=== PATIENT | female | born 1990 | race American Indian/Alaskan Native ===

== ENCOUNTER 2016-12-20 18:48 | Emergency (ER) | payer MEDICAID, OTHER ==
[2016-12-20 21:31] LABS: Eosinophils % (Auto) 1.6 % (0.0-4.3); Hematocrit 39.7 % (30.3-42.9); Hemoglobin 12.8 gm/dl (10.1-14.3); Mean Corpuscular HGB Conc 32 % (30-34); Mean Corpuscular Hemoglobin 26 pg (28-32); Mean Corpuscular Volume 82 fl (79-97); Platelet Count 228 K/mm3 (140-440); Red Blood Count 4.87 M/mm3 (3.65-5.03); Red Cell Distribution Width 14.1 % (13.2-15.2); White Blood Count 6.3 K/mm3 (4.5-11.0)
[2016-12-20 21:41] LABS: INR 0.98 (0.87-1.13)
[2016-12-20 21:42] LABS: Partial Thromboplastin Time 27.5 Sec. (24.2-36.6)
[2016-12-20 21:52] LABS: Alanine Aminotransferase 38 units/L (7-56); Albumin 4.3 g/dL (3.9-5); Alkaline Phosphatase 75 units/L (35-129); Anion Gap 18 mmol/L; BUN/Creatinine Ratio 11.42; Blood Urea Nitrogen 8 mg/dL (7-17); Calcium 9.1 mg/dL (8.4-10.2); Carbon Dioxide 26 mmol/L (22-30); Chloride 101.5 mmol/L (98-107); Glucose 93 mg/dL (65-100); Lipase 48 units/L (13-60); Potassium 3.8 mmol/L (3.6-5.0); Sodium 142 mmol/L (137-145); Total Protein 8.6 g/dL (6.3-8.2)
--- NOTE | 2016-12-21 07:30 | Emergency Department Report ---
HPI - General Chief Complaint: Nausea/Vomiting/Diarrhea Time Seen by Provider: 12/21/16 07:13 - HPI HPI: This is a 26 year-old female who was dropped off by a friend to be seen with a complaint of a 4 to five-day history of upper abdominal pain and pressure. Over the weekend she called EMS and they came to evaluate her and she was told that it was a stomach virus and it would go away, however she has been unable to get any relief. She has not taken anything for her symptoms prior to presentation. She complains of some mild constipation. She feels as if her abdomen is slightly distended "as if I am but I know that I am not" as the patient has an IUD in her arm in place. No recent travel or sick contacts at home. She has a primary care physician but has not seen them regarding her symptoms. ED Past Medical Hx - Past Medical History Previous Medical History?: Yes Hx Hypertension: Yes (gestational) Hx Congestive Heart Failure: No Hx Diabetes: No Hx Deep Vein Thrombosis: No Hx Renal Disease: No Hx Sickle Cell Disease: No Hx Seizures: No Hx Asthma: No Hx COPD: No Hx HIV: No - Surgical History Past Surgical History?: Yes Additional Surgical History: Vaginal deliveries w/o complications - Social History Smoking Status: Never Smoker - Medications Home Medications: Home Medications Medication Instructions Recorded Confirmed Last Taken Type Vit-Fe Fumar-FA [ 1 tab PO QDAY 02/10/16 02/10/16 02/07/16 History Vitamin] valACYclovir [Valtrex] 500 mg PO BID 02/10/16 02/10/16 02/09/16 History Docusate Sodium [Colace] 100 mg PO BID PRN #60 capsule 02/12/16 Unknown Rx Ferrous Sulfate [Feosol 325 MG tab] 325 mg PO BID #60 tablet 02/12/16 Unknown Rx Ibuprofen [Motrin 800 MG tab] 800 mg PO Q8HR PRN #30 tablet 02/12/16 Unknown Rx oxyCODONE /ACETAMINOPHEN [Percocet 1 tab PO Q4HR #30 tab 02/12/16 Unknown Rx 5/325] HYDROcodone/APAP 5-325 [[place] 1 each PO Q6HR PRN #10 tablet 12/21/16 Unknown Rx 5/325] ED Review of Systems ROS: Stated complaint: stomach pain Other details as noted in HPI Comment: All other systems reviewed and negative Constitutional: denies: chills, fever Eyes: denies: eye pain, eye discharge, vision change ENT: denies: ear pain, throat pain Respiratory: denies: cough, shortness of breath, wheezing Cardiovascular: denies: chest pain, palpitations Gastrointestinal: abdominal pain, constipation. denies: vomiting Genitourinary: denies: urgency, dysuria, discharge Musculoskeletal: denies: back pain, joint swelling, arthralgia Skin: denies: rash, lesions Neurological: denies: headache, weakness, paresthesias Physical Exam - Physical Exam Vital Signs: Vital Signs 12/20/16 12/21/16 12/21/16 20:15 04:20 07:03 Temperature 98.7 F 98.9 F 98.3 F Pulse Rate 96 H 86 77 Respiratory 18 18 16 Rate Blood Pressure 134/87 121/87 134/91 O2 Sat by Pulse 100 98 100 Oximetry Physical Exam: GENERAL: The patient is well-developed well-nourished. HENT: Normocephalic. Atraumatic. Patient has moist mucous membranes. EYES: Extraocular motions are intact. Pupils equal reactive to light bilaterally. NECK: Supple. Trachea is midline. CHEST/LUNGS: Clear to auscultation. There is no respiratory distress noted. HEART/CARDIOVASCULAR: Regular. There is no tachycardia. There is no gallop rub or murmur. ABDOMEN: Abdomen is soft. There is tenderness palpation to the upper quadrants of the abdomen. No guarding rebound tenderness. Patient has normal bowel sounds. There is no abdominal distention. SKIN: Skin is warm and dry. NEURO: The patient is awake, alert, and oriented. The patient is cooperative. The patient has no focal neurologic deficits. The patient has normal speech. MUSCULOSKELETAL: There is no tenderness or deformity. There is no limitation range of motion. There is no evidence of acute injury. ED Course Vital Signs 12/20/16 12/21/16 12/21/16 20:15 04:20 07:03 Temperature 98.7 F 98.9 F 98.3 F Pulse Rate 96 H 86 77 Respiratory 18 18 16 Rate Blood Pressure 134/87 121/87 134/91 O2 Sat by Pulse 100 98 100 Oximetry - Consultations Consultation #1: After getting the ultrasound back showing questionable acute cholecystitis, Dr. Denson, general surgery was contacted. He recommended a HIDA scan. The results of this showed concern for acute cholecystitis. He was once again contacted and recommended the patient be discharged to follow up with his office immediately, today, and she will most likely be set up outpatient for a cholecystectomy tomorrow. 12/21/16 14:48 ED Medical Decision Making - Lab Data Result diagrams: 12/20/16 20:57 12/20/16 20:57 - Radiology Data Radiology results: report reviewed, image reviewed interpreted by me: Abdominal x-ray shows nonspecific nonobstructive bowel gas. RIGHT UPPER QUADRANT ULTRASOUND: HISTORY: Upper abdominal pain. Technique: Transabdominal ultrasound imaging with color Doppler interrogation. FINDINGS: There are numerous shadowing gallstones within the gallbladder measuring up to 1 cm. The gallbladder is borderline dilated measuring 13.7 cm in length and 4.5 cm in diameter. Gallbladder wall measures 4 mm. No pericholecystic fluid. The CBD measures 3.4 mm. Images of the liver parenchyma, pancreas, right kidney and aorta are within normal limits. No perihepatic ascites. IMPRESSION: Cholelithiasis. Borderline dilated gallbladder and gallbladder wall thickening. These findings are equivocal for acute cholecystitis. Please correlate with the patient's clinical presentation and laboratory values. HEPATOBILIARY SCAN: History: Right upper quadrant pain, nausea and vomiting Findings: The right upper quadrant ultrasound performed the same day was reviewed. Following the injection of the radionuclide, serial scanning was obtained over the right upper quadrant. There is nonvisualization of the gallbladder out to 2 hours on HIDA scan. There is normal appearance of the radiotracer in the central biliary ducts, common bile duct and bowel loops. IMPRESSION: Nonvisualization of the gallbladder on HIDA scan concerning for acute cholecystitis. - Medical Decision Making 26-year-old female presents with upper abdominal pain and some occasional nausea and vomiting. Labs are mostly unremarkable. Ultrasound shows cholelithiasis but there is some borderline dilation of the gallbladder and wall thickening that could be concerning for acute cholecystitis. After speaking with the general surgeon, he recommended a HIDA scan. HIDA scan came back showing concern for acute cholecystitis. Gen. surgery and recommended patient be discharged directly to his office where he will evaluate her and get her set up for a cholecystectomy tomorrow outpatient. Patient has been stable throughout her ED course. Vital signs stable could be afebrile. She understands and agrees to plan. - Differential Diagnosis cholelithiasis, cholecystitis, pancreatitis, gastritis Critical Care Time: No Critical care attestation.: If time is entered above; I have spent that time in minutes in the direct care of this critically ill patient, excluding procedure time. ED Disposition Clinical Impression: Acute cholecystitis Disposition: DC/TX-70 ANOTHER TYPE HLTHCARE Is pt being admited?: No Condition: Stable Instructions: Cholecystitis (ED) Additional Instructions: Please go immediately to the office of Dr. Denson. You have been prescribed a medication that is sedating and therefore should not be taken prior to driving, working, and responsible for children and in no way should be mixed with alcohol of any quantity. Prescriptions: HYDROcodone/APAP 5-325 [[place] 5/325] 1 each PO Q6HR PRN #10 tablet PRN Reason: Pain Referrals: KENNETH DENSON MD [Staff Physician] - [place] Forms: Work/School Release Form(ED) Time of Disposition: 12:24
--- NOTE | 2016-12-21 08:18 | Ultrasound Report ---
RIGHT UPPER QUADRANT ULTRASOUND: HISTORY: Upper abdominal pain. Technique: Transabdominal ultrasound imaging with color Doppler interrogation. FINDINGS: There are numerous shadowing gallstones within the gallbladder measuring up to 1 cm. The gallbladder is borderline dilated measuring 13.7 cm in length and 4.5 cm in diameter. Gallbladder wall measures 4 mm. No pericholecystic fluid. The CBD measures 3.4 mm. Images of the liver parenchyma, pancreas, right kidney and aorta are within normal limits. No perihepatic ascites. IMPRESSION: Cholelithiasis. Borderline dilated gallbladder and gallbladder wall thickening. These findings are equivocal for acute cholecystitis. Please correlate with the patient's clinical presentation and laboratory values.
--- NOTE | 2016-12-21 10:40 | XRay Report ---
ABDOMEN, 2 views: History: Abdominal pain. The bowel gas pattern is within normal limits. No evidence for obstruction, fluid levels or free air. There is moderate stool in the colon. There is a curvilinear calcification in the left upper quadrant in the expected location of the spleen. These calcifications measure up to 8 cm in diameter. The etiology of this is unclear. Consider further evaluation with CT. IMPRESSION: Mild fecal retention. No acute process is appreciated. Left upper quadrant ill-defined calcifications. Please correlate with the images. The etiology of this is unclear. CT with or without contrast could further evaluate this area if needed.
[2016-12-21 11:20] VITALS: BP 109/61
--- NOTE | 2016-12-21 11:54 | Nuclear Medicine Report ---
HEPATOBILIARY SCAN: History: Right upper quadrant pain, nausea and vomiting Findings: The right upper quadrant ultrasound performed the same day was reviewed. Following the injection of the radionuclide, serial scanning was obtained over the right upper quadrant. There is nonvisualization of the gallbladder out to 2 hours on HIDA scan. There is normal appearance of the radiotracer in the central biliary ducts, common bile duct and bowel loops. IMPRESSION: Nonvisualization of the gallbladder on HIDA scan concerning for acute cholecystitis.
== END 2016-12-21 12:56 | disposition other institution (70) ==
LOC: ED 18:48
DX: K81.0 Acute cholecystitis (principal)
CPT/HCPCS: 36415; 74020; 76705; 78226; 80053; 83690; 84703; 85025; 85610; 85730; 86850; 86900; 86901; 93005; 93010; 99285; A9537

== ENCOUNTER 2016-12-23 11:23 | Day surgery (SDC) | payer SELFPAY ==
--- NOTE | 2016-12-23 12:04 | Anesthesia Consultation ---
Anesthesia Consult and Med Hx Date of service: 12/23/16 - Airway Anesthetic Teeth Evaluation: Good ROM Head & Neck: Adequate Mental/Hyoid Distance: Adequate Mallampati Class: Class II Intubation Access Assessment: Probably Good - Pulmonary Exam CTA: Yes - Cardiac Exam Cardiac Exam: RRR - Pre-Operative Health Status ASA Pre-Surgery Classification: ASA2 Proposed Anesthetic Plan: General - Pulmonary Hx Asthma: No COPD: No Hx Pneumonia: No - Cardiovascular System Hx Hypertension: Yes (gestational) - Central Nervous System Hx Seizures: No Hx Psychiatric Problems: No - Endocrine Hx Renal Disease: No Hx End Stage Renal Disease: No Hx Hypothyroidism: No Hx Hyperthyroidism: No - Hematic Hx Anemia: No Hx Sickle Cell Disease: No - Other Systems Hx Alcohol Use: No Hx Obesity: Yes
[2016-12-23] MEDS ORDERED: DILAUDID IV PRN (12:05)
--- NOTE | 2016-12-23 12:05 | Anesthesia Day of Surgery ---
Anesthesia Day of Surgery - Day of Surgery Patient Examined: Yes Patient H&P Reviewed: Yes Patient is NPO: Yes
[2016-12-23] MEDS ORDERED: SUBLIMAZE ONE (12:19)
[2016-12-23] MEDS ORDERED: DIPRIVAN 10 MG/ML IV ONE ×2 (12:20→13:41)
[2016-12-23] MEDS ORDERED: ANCEF/STERILE WATER 2 GM/20 ML IV NR (12:20)
[2016-12-23] MEDS ORDERED: PERCOCET 5/325 PO PRN (13:00)
[2016-12-23] MEDS ORDERED: ZOFRAN IV PRN (13:00)
[2016-12-23] MEDS ORDERED: PEPCID IV NR (13:00)
[2016-12-23] MEDS ORDERED: LACTATED RINGERS 1,000 ML IV SCH (13:00)
[2016-12-23] MEDS ORDERED: VERSED IV NR (13:00)
[2016-12-23] MEDS ORDERED: MARCAINE 0.5% 30 ML INFILTRATI ONE (13:13)
[2016-12-23] MEDS ORDERED: XYLOCAINE MPF 2% ONE (13:51)
[2016-12-23] MEDS ORDERED: BREVIBLOC IV ONE (13:51)
[2016-12-23] MEDS ORDERED: ZEMURON IV ONE (13:51)
[2016-12-23] MEDS ORDERED: NACL 0.9% IR ONE ×2 (14:10→14:11)
[2016-12-23] MEDS ORDERED: MARCAINE 0.5% INFILTRATI ONE (14:11)
[2016-12-23] MEDS ORDERED: ROBINUL ONE (14:12)
[2016-12-23] MEDS ORDERED: NEOSTIGMINE ONE (14:12)
[2016-12-23] MEDS ORDERED: TORADOL ONE (14:48)
[2016-12-23] MEDS ORDERED: DILAUDID ONE (15:04)
--- NOTE | 2016-12-23 15:11 | Discharge Summary ---
Short Stay Discharge Plan Activity: advance as tolerated Diet: low fat, low cholesterol Wound: per your surgeon's advice Follow up with: PRIMARY CARE, [Primary Care Provider] - 7 Days
[2016-12-23 17:36] VITALS: BP 143/82
--- NOTE | 2016-12-23 23:34 | Operative Report ---
PREOPERATIVE DIAGNOSIS: Acute cholecystitis. POSTOPERATIVE DIAGNOSIS: Acute cholecystitis. SURGERY: Laparoscopic cholecystectomy. ANESTHESIA: General. BLOOD LOSS: Minimal. FINDINGS: The patient had a very large gallbladder that was filled with lots of stones. The cystic duct is about 2 mm. The cystic artery is about 1 mm. The gallbladder was very edematous. BLOOD LOSS: Minimal. FINDINGS: As above. DESCRIPTION OF PROCEDURE: With the patient in supine position, after cleansing and draped in the usual fashion, we had a Veress needle into the right upper quadrant with insufflating CO2 up to a pressure of 15 for which #5 trocar was inserted. With the use of camera, I was able to introduce three more trocars, #5 in the subumbilical area, another #5 in the mid right upper abdomen and #10 in the mid upper epigastrium. I got hold of gallbladder from its fundus. I had to decompress it. I got about 25 mL of hydrops fluid from it. Then a grasper was then applied at the infundibular area at which point I was able to isolate and see both cystic duct and cystic artery. These were endoclipped x 4, transected, and the gallbladder was removed in toto using electrocautery all the way, then it was excised through the wound via an EndoCatch through the usual fashion. With good hemostasis, we were well satisfied, then all the trocars were removed one by one, ascertained no bleeding from the insertion sites. At that point, the fascia was then closed with a [id number] stitch of #0 x 2 and the skin with 4-0 Vicryl and bandage. The patient was then transferred to the recovery room in good condition. She is supposed to ____ with her antibiotic namely Keflex and hydrocodone to see me in my office in about 10 days. JOB# [id number] ANTONIA/MADINA
--- NOTE | 2016-12-24 00:42 | Discharge Summary ---
FINAL DIAGNOSIS: Acute cholecystitis with hydrops. HOSPITAL COURSE: The patient was seen in the ER 2 days ago because of severe pain in the right upper quadrant, severe nausea, but no vomiting. Apparently, had a workup that included CT scan and a HIDA scan that showed complete obstruction of the cystic duct with hydrops apparently with thickened wall of the gallbladder. She was then today came for definitive surgical intervention, where she underwent a laparoscopic cholecystectomy. The examination was mainly for right upper quadrant tenderness ____. She was found also to have an umbilical hernia with a defect about 2 x 2 cm. Postop, she was transferred to the recovery room and she was to go home and seen by me in my office in about 10 days. She is to continue with her antibiotics, Keflex and hydrocodone. DIET: Low fat. ACTIVITIES: No driving. JOB# [id number] ANTONIA/MADINA
== END 2016-12-23 17:32 | disposition home or self-care (01) ==
LOC: OR 11:23
PROVIDERS: ATTEND Surgery
DX: K80.00 Calculus of gallbladder with acute cholecystitis without obstruction (principal); K80.10 Calculus of gallbladder with chronic cholecystitis without obstruction; K82.1 Hydrops of gallbladder; K21.9 Gastro-esophageal reflux disease without esophagitis; E66.9 Obesity, unspecified; Z68.39 Body mass index [BMI] 39.0-39.9, adult
CPT/HCPCS: 47562; 88304; A4217; J0690; J1170; J1885; J2250; J2704; J2710; J3010; J7120

== ENCOUNTER 2017-12-07 11:08 | Emergency (ER) | payer OTHER, SELFPAY ==
[2017-12-07 11:17] VITALS: BP 137/86
[2017-12-07] MEDS ORDERED: MOTRIN PO ONE (12:54)
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
--- NOTE | 2017-12-07 14:18 | XRay Report ---
CERVICAL SPINE, 3 views: History: Neck pain. AP and lateral views of the cervical spine were obtained. There is anatomic alignment, and the disc spaces are well maintained. There is no evidence of fracture or subluxation. There is loss of the normal cervical lordotic curve suggestive of muscle spasm. The prevertebral soft tissues are within normal limits. IMPRESSION: Loss of cervical lordosis suggesting muscle spasm vs. variation in patient positioning. Clinical correlation is advised. Otherwise negative cervical spine.
--- NOTE | 2017-12-07 14:18 | XRay Report ---
THORACIC SPINE, 2 VIEWS: HISTORY: back pain. Normal bone mineralization. No evidence for compression deformity, malalignment, or bone lesion. The posterior ribs are intact. The paraspinal soft tissues are within normal limits. IMPRESSION: Thoracic spine within normal limits.
== END 2017-12-07 14:34 | disposition home or self-care (01) ==
LOC: ED 11:08
DX: S39.012A Strain of muscle, fascia and tendon of lower back, initial encounter (principal); S13.4XXA Sprain of ligaments of cervical spine, initial encounter; V49.49XA Driver injured in collision with other motor vehicles in traffic accident, initial encounter; Y93.89 Activity, other specified; Y92.89 Other specified places as the place of occurrence of the external cause; Y99.8 Other external cause status
CPT/HCPCS: 72040; 72072

== ENCOUNTER 2020-12-15 09:09 | Emergency (ER) | payer OTHER, SELFPAY ==
[2020-12-15 09:44] VITALS: BP 117/83
--- NOTE | 2020-12-15 09:51 | Emergency Department Report ---
- General Chief Complaint: Sore Throat Stated Complaint: COVID POSITIVE Time Seen by Provider: 12/15/20 09:46 Source: patient Mode of arrival: Ambulatory Limitations: No Limitations - History of Present Illness Initial Comments: The patient was evaluated in the emergency department for symptoms described in the history of present illness. He/she was evaluated in the context of the global COVID-19 pandemic, which necessitated consideration that the patient might be at risk for infection with the virus that causes COVID-19. Institutional protocols and algorithms that pertain to the evaluation of patients at risk for COVID-19 are in a state of rapid change based on information released by regulatory bodies including the CDC and federal and state organizations. These policies and algorithms were followed during the patient's care in the emergency department. Please note that these policies, procedures and recommendations changed on a rapid basis. 30-year-old morbid obese -[place]ov[place] female presents to the emergency room stating that she tested positive for Covid 19 on Tuesday. Patient states since then she has been having body aches low-grade fever headache sore throat and fatigue. Patient is unvaccinated. She denies any past medical history does not take any current medications on a daily basis. She has been taken [id number] ibuprofen and DayQuil. No nausea no vomiting no diarrhea. - Related Data Home Medications Medication Instructions Recorded Confirmed Last Taken Etonogestrel [Nexplanon] 1 applic SQ ONCE 12/23/16 09/25/19 12/23/16 Previous Rx's Medication Instructions Recorded Last Taken Type Ketorolac [Toradol] 10 mg PO Q6H PRN #15 tablet 09/25/19 Unknown Rx methOCARBAMOL [Robaxin] 750 mg PO Q8H PRN #21 tablet 09/25/19 Unknown Rx Ibuprofen [Motrin 800 MG tab] 800 mg PO Q8HR PRN #30 tablet 12/15/20 Unknown Rx Prednisone [predniSONE 10 mg 10 mg PO .TAPER #1 tab.ds.pk 12/15/20 Unknown Rx (6-Day Pack, 21 Tabs)] Promethazine/Dextromethorphan 5 ml PO TID PRN #118 ml 12/15/20 Unknown Rx [Promethazine-Dm Syrup] Allergies Allergy/AdvReac Type Severity Reaction Status Date / Time No Known Allergies Allergy Verified 12/21/15 12:04 ED Review of Systems ROS: Stated complaint: COVID POSITIVE Other details as noted in HPI Comment: All other systems reviewed and negative ED Past Medical Hx - Past Medical History Hx Hypertension: Yes (gestational) Hx Congestive Heart Failure: No Hx Diabetes: No Hx Deep Vein Thrombosis: No Hx GERD: Yes Hx Renal Disease: No Hx Sickle Cell Disease: No Hx Seizures: No Hx Asthma: No Hx COPD: No Hx HIV: No - Surgical History Hx Cholecystectomy: Yes Additional Surgical History: Vaginal deliveries w/o complications - Social History Smoking Status: Never Smoker - Medications Home Medications: Home Medications Medication Instructions Recorded Confirmed Last Taken Type Etonogestrel [Nexplanon] 1 applic SQ ONCE 12/23/16 09/25/19 12/23/16 History Ketorolac [Toradol] 10 mg PO Q6H PRN #15 tablet 09/25/19 Unknown Rx methOCARBAMOL [Robaxin] 750 mg PO Q8H PRN #21 tablet 09/25/19 Unknown Rx Ibuprofen [Motrin 800 MG tab] 800 mg PO Q8HR PRN #30 tablet 12/15/20 Unknown Rx Prednisone [predniSONE 10 mg 10 mg PO .TAPER #1 tab.ds.pk 12/15/20 Unknown Rx (6-Day Pack, 21 Tabs)] Promethazine/Dextromethorphan 5 ml PO TID PRN #118 ml 12/15/20 Unknown Rx [Promethazine-Dm Syrup] ED Physical Exam - General Limitations: No Limitations General appearance: alert, in no apparent distress - Head Head exam: Present: atraumatic, normocephalic - Eye Eye exam: Present: normal appearance - ENT ENT exam: Present: mucous membranes moist. Absent: TM's normal bilaterally (Cerumen impaction bilateral) - Neck Neck exam: Present: normal inspection - Respiratory Respiratory exam: Present: normal lung sounds bilaterally. Absent: respiratory distress, chest wall tenderness, accessory muscle use - Cardiovascular Cardiovascular Exam: Present: regular rate, normal rhythm. Absent: systolic murmur, diastolic murmur, rubs, gallop - GI/Abdominal GI/Abdominal exam: Present: soft, normal bowel sounds - Extremities Exam Extremities exam: Present: normal inspection - Back Exam Back exam: Present: normal inspection - Neurological Exam Neurological exam: Present: alert, oriented X3, normal gait - Psychiatric Psychiatric exam: Present: normal affect, normal mood - Skin Skin exam: Present: warm, dry, intact, normal color. Absent: rash ED Course Vital Signs 12/15/20 09:43 Temperature 98.6 F Pulse Rate 101 H Respiratory 16 Rate Blood Pressure 117/83 [Right] O2 Sat by Pulse 97 Oximetry ED Medical Decision Making - Medical Decision Making 30-year-old morbid obese -Slov[place] female presents to the emergency room stating that she tested positive for Covid 19 on Tuesday. Patient states since then she has been having body aches low-grade fever headache sore throat and fatigue. Patient is unvaccinated. She denies any past medical history does not take any current medications on a daily basis. She has been taken [id number] nter ibuprofen and DayQuil. No nausea no vomiting no diarrhea. Prescription for prednisone pack, promethazine DM and ibuprofen. Encourage patient to increase her water intake. Continue to quarantine. Get retested once her symptoms have improved and encouraged to get Covid vaccination. Critical care attestation.: If time is entered above; I have spent that time in minutes in the direct care of this critically ill patient, excluding procedure time. ED Disposition Clinical Impression: COVID-19, Cough Disposition: HOME / SELF CARE / HOMELESS Is pt being admited?: No Does the pt Need Aspirin: No Condition: Stable Instructions: COVID-19 Frequently Asked Questions, COVID-19: How to Protect Yourself and Others - CDC, Prevent the Spread of COVID-19 if You Are Sick - [facility] Additional Instructions: Complete prednisone as prescribed take ibuprofen for the body aches and fever take cough medication to help with your cough. You have to test negative to return back to work. Encouraged to get your flu and Covid test. Prescriptions: Ibuprofen [Motrin 800 MG tab] 800 mg PO Q8HR PRN #30 tablet PRN Reason: Pain , Severe (7-10) Prednisone [predniSONE 10 mg (6-Day Pack, 21 Tabs)] 10 mg PO .TAPER #1 tab.ds.pk Promethazine/Dextromethorphan [Promethazine-Dm Syrup] 5 ml PO TID PRN #118 ml PRN Reason: Cough Referrals: [facility] [Provider Group] - 3-5 Days Time of Disposition: 09:50
== END 2020-12-15 10:08 | disposition home or self-care (01) ==
LOC: ED 09:09
DX: U07.1 COVID-19 (principal); K21.9 Gastro-esophageal reflux disease without esophagitis; Z98.890 Other specified postprocedural states; Z79.899 Other long term (current) drug therapy
CPT/HCPCS: 99281

== ENCOUNTER 2021-08-26 09:37 | Inpatient (IN) | payer MEDICAID, OTHER ==
[2021-08-20 12:46] LABS: Hematocrit 39.6 % (30.3-42.9); Hemoglobin 12.8 gm/dl (10.1-14.3); Mean Corpuscular HGB Conc 32 % (30-34); Mean Corpuscular Volume 82 fl (79-97); Platelet Count 170 K/mm3 (140-440); Red Blood Count 4.81 M/mm3 (3.65-5.03); Red Cell Distribution Width 14.7 % (13.2-15.2)
[2021-08-26] MEDS ORDERED: LACTATED RINGERS 2,000 ML ONE (10:07)
--- NOTE | 2021-08-26 10:40 | Anesthesia Day of Surgery ---
Anesthesia Day of Surgery - Day of Surgery Patient Examined: Yes Patient H&P Reviewed: Yes Patient is NPO: Yes
--- NOTE | 2021-08-26 10:40 | Anesthesia Consultation ---
Anesthesia Consult and Med Hx Date of service: 08/26/21 - Airway Anesthetic Teeth Evaluation: Good ROM Head & Neck: Adequate Mental/Hyoid Distance: Adequate Mallampati Class: Class II Intubation Access Assessment: Good - Pulmonary Exam CTA: Yes - Cardiac Exam Cardiac Exam: RRR - Pre-Operative Health Status ASA Pre-Surgery Classification: ASA2 Proposed Anesthetic Plan: Spinal - Pulmonary Hx Asthma: No COPD: No Hx Pneumonia: No - Cardiovascular System Hx Hypertension: Yes (gestational) - Central Nervous System Hx Seizures: No Hx Psychiatric Problems: No - Endocrine Hx Renal Disease: No Hx End Stage Renal Disease: No Hx Hypothyroidism: No Hx Hyperthyroidism: No - Hematic Hx Anemia: No Hx Sickle Cell Disease: No - Other Systems Hx Alcohol Use: No Hx Cancer: No Hx Obesity: Yes
[2021-08-26] MEDS ORDERED: HYDROmorphone 1 MG/1 ML INJ IV PRN (10:41)
[2021-08-26] MEDS ORDERED: BICITRA ORAL LIQD 30ML PO SCH (11:00)
[2021-08-26] MEDS ORDERED: ONDANSETRON 4 MG/2 ML INJ IV PRN (11:00)
[2021-08-26] MEDS ORDERED: PROMETHAZINE 25 MG RECT SUPP PR PRN (11:00)
[2021-08-26] MEDS ORDERED: FAMOTIDINE 20 MG/2 ML INJ IV SCH (11:00)
[2021-08-26] MEDS ORDERED: PROMETHAZINE 25 MG TAB PO PRN (11:00)
[2021-08-26] MEDS ORDERED: NALOXONE 0.4 MG/1 ML INJ IV PRN ×2 (11:00→12:30)
[2021-08-26] MEDS ORDERED: METOCLOPRAMIDE 10 MG/2 ML INJ IV SCH (11:00)
[2021-08-26 11:03] LABS: Hematocrit 37.7 % (30.3-42.9); Hemoglobin 12.5 gm/dl (10.1-14.3); Mean Corpuscular HGB Conc 33 % (30-34); Mean Corpuscular Volume 82 fl (79-97); Platelet Count 177 K/mm3 (140-440); Red Cell Distribution Width 14.5 % (13.2-15.2)
[2021-08-26] MEDS ORDERED: ceFAZolin/Water 2 GM/20 ML 2 GM/20 ML SYRINGE IV ONE (11:17)
[2021-08-26] MEDS ORDERED: BICITRA ORAL LIQD 30ML ONE (11:17)
[2021-08-26] MEDS ORDERED: OXYTOCIN DRIP 60,000 MILLIUNITS/1,000 ML BAG IV ONE (11:17)
--- NOTE | 2021-08-26 11:30 | History and Physical Report ---
History of Present Illness Date of examination: 08/26/21 Date of admission: 08/26/21 09:37 Chief complaint: scheduled delivery History of present illness: 30y/o @ 39+0 weeks presents for a scheduled delivery and bilateral tubal ligation. The patient has had a previous . Patient initiated care in the first trimester. Her course is complicated by obesity, echogenic bowel on ultrasound, and transient hyperthyroidism. Past History Past Medical History: GERD, other (hyperthyroidism) Past Surgical History: section Social history: - Obstetrical History Expected Date of Delivery: 09/02/21 Actual Gestation: 39 Week(s) 0 Day(s) : 5 Para: 3 Hx # Term Pregnancies: 3 Number of Pregnancies: 0 Spontaneous Abortions: 2 Induced : 0 Number of Living Children: 3 Medications and Allergies Allergies Allergy/AdvReac Type Severity Reaction Status Date / Time No Known Allergies Allergy Verified 08/19/21 16:44 Home Medications Medication Instructions Recorded Confirmed Last Taken Type Aspirin [Adult Aspirin] 81 mg PO DAILY 08/19/21 08/19/21 Unknown History Vit-Fe Fumar-FA [ 1 tab PO QDAY 08/19/21 08/19/21 Unknown History Vitamin] Active Meds: Active Medications Citric Acid/Sodium Citrate (Bicitra Oral Liqd 30ml) 30 ml PO PREOP CANDACE Stop: 08/26/21 17:00 Last Admin: 08/26/21 11:26 Dose: 30 ml Famotidine (Famotidine 20 Mg/2 Ml Inj) 20 mg IV PREOP CANDACE Stop: 08/26/21 17:00 Last Admin: 08/26/21 11:25 Dose: 20 mg Hydromorphone HCl (Hydromorphone 1 Mg/1 Ml Inj) 0.5 mg IV Q5M PRN PRN Reason: BREAKTHROUGH PAIN Stop: 08/26/21 17:00 Lactated Ringer's (Lactated Ringers) 1,000 mls @ 2,250 mls/hr IV PREOP CANDACE Stop: 08/27/21 11:57 Oxytocin/Sodium Chloride (Pitocin/Ns 30 Unit/500ml) 30 units in 500 mls @ 0 mls/hr IV TITR CANDACE; Protocol Metoclopramide HCl (Metoclopramide 10 Mg/2 Ml Inj) 10 mg IV PREOP CANDACE Stop: 08/26/21 17:00 Last Admin: 08/26/21 11:23 Dose: 10 mg Naloxone HCl (Naloxone 0.4 Mg/1 Ml Inj) 0.2 mg IV Q2MIN PRN PRN Reason: Res Rate </= 8 or 02 SAT < 92% Ondansetron HCl (Ondansetron 4 Mg/2 Ml Inj) 4 mg IV Q8H PRN PRN Reason: Nausea And Vomiting Promethazine HCl (Promethazine 25 Mg Tab) 25 mg PO Q6H PRN PRN Reason: Nausea And Vomiting Promethazine HCl (Promethazine 25 Mg Rect Supp) 25 mg CO Q6H PRN PRN Reason: Nausea And Vomiting Sodium Chloride (Sodium Chloride 0.9% 10 Ml Flush Syringe) 10 ml IV PRN PRN PRN Reason: flush Review of Systems All systems: negative Genitourinary: no leakage of fluid, no contractions - Vital Signs Vital signs: Vital Signs Temp Pulse Resp BP Pulse Ox 98.1 F 94 H 16 119/75 99 08/20/21 12:30 08/20/21 12:30 08/20/21 12:30 08/20/21 12:30 08/20/21 12:30 Temp Pulse Resp BP Pulse Ox 97.5 F L 83 20 125/85 100 08/26/21 10:02 08/26/21 11:25 08/26/21 10:02 08/26/21 10:02 08/26/21 11:25 - Physical Exam Breasts: Positive: deferred Cardiovascular: Regular rate Lungs: Positive: Clear to auscultation Abdomen: Positive: normal appearance Results Result Diagrams: 08/26/21 10:40 Abnormal lab results 08/26/21 Range/Units 10:40 MCH 27 L (28-32) pg All other labs normal. Assessment and Plan - Patient Problems (1) Previous delivery affecting Current Visit: Yes Status: Acute Plan to address problem: admitted for repeat and tubal ligation (2) Unwanted fertility Current Visit: Yes Status: Acute
[2021-08-26] MEDS ORDERED: diphenhydrAMINE 50 MG/ML VIAL ONE (11:34)
[2021-08-26] MEDS: LACTATED RINGERS 1,000 ML IV SCH ×3 (11:35→13:39)
[2021-08-26] MEDS ORDERED: diphenhydrAMINE 25 MG/10 ML ORAL LIQUID PO NR (11:36)
[2021-08-26] MEDS ORDERED: ceFAZolin/STERILE WATER 2 GM/20 ML SYRINGE IV ONE (11:48)
--- NOTE | 2021-08-26 11:49 | Procedure Note ---
OB Delivery Note - Delivery Date of Delivery: 08/26/21 Surgeon: NAREN WAKEFIELD Estimated blood loss: other (qbl 672ml) - Section Preop diagnosis: repeat Postop diagnosis: same section procedure: section, repeat low transverse, bilateral tubal ligation Disposition: PACU Complications: none - A at 1 minute: 8 at 5 minutes: 9 Infant Gender: Male (Weight 6 pounds 10 ounces)
[2021-08-26] MEDS ORDERED: D5W/LACTATED RINGERS 1,000 ML IV SCH (12:00)
[2021-08-26] MEDS ORDERED: OXYTOCIN DRIP 30 UNITS/500 ML BAG IV SCH ×2 (12:00)
[2021-08-26] MEDS ORDERED: LANOLIN/ZINC/DIMETHICONE (LANSINOH) 7 GM TP PRN (12:30)
[2021-08-26] MEDS ORDERED: WITCH HAZEL/ GLYCERIN PAD TP PRN (12:30)
[2021-08-26] MEDS ORDERED: ACETAMINOPHEN 325 MG TAB PO PRN (12:30)
[2021-08-26] MEDS ORDERED: ONDANSETRON 4 MG/2 ML INJ ONE (13:14)
[2021-08-26] MEDS ORDERED: SODIUM CHLORIDE 0.9% 100 ML ONE (13:14)
[2021-08-26] MEDS ORDERED: dexAMETHasone 20 MG/5 ML VIAL ONE (13:14)
[2021-08-26] MEDS ORDERED: BUPIVACAINE/PF (0.5%) 5 MG/1 ML 30 ML VIAL INFILTRATI ONE (13:14)
--- NOTE | 2021-08-26 13:22 | Progress Note ---
Spinal Anesthesia Block - Spinal Anesthesia Block Start Time: 11:55 Stop Time: 11:58 Performed by:: JOE OWENS Procedure: Spinal anesthesia block is being performed for []. H&P, labs have been reviewed. Patient's questions and concerns have been answered. Informed consent has been performed. Timeout has was performed. Patient in sitting position on side of bed. Sterile prep and drape was performed. 3 mL 1% lidocaine skin wheal at L [3]-L [4]. Needle introducer advanced. 24-gauge spinal needle advanced, [+] CSF [-] blood. [] Spinal dose was given. All needles removed. Patient tolerated procedure well.
--- NOTE | 2021-08-26 13:22 | Progress Note ---
Regional Anesthesia Block - Regional Anesthesia Block Start Time: 13:11 Stop Time: 13:13 Performed By:: JOE OWENS Procedure: Patient consented for TAP block for post surgical pain management. Patient identified, monitors placed, and time out performed. Mid axillary TAP identified bilaterally via ultrasound. Skin prepped bilaterally with [chlorhexidine] and [20g stimuplex] needle advanced to the TAP. 30ml [Marcaine 0.25% with 25mcg Precedex and Decadron 5mg] injected under ultrasound guidance on the [left] side. 30ml [Marcaine 0.25% with 25mcg Precedex and Decadron 5mg] injected under ultrasound guidance on the [right] side. Negative aspiration every 5mL, Patient tolerated the procedure well. No apparent complications seen.
--- NOTE | 2021-08-26 13:23 | Post Anesthesia Evaluation ---
- Post Anesthesia Evaluation Patient Participated: Yes Airway Patent: Yes Stable Respiratory Function: Yes Nausea/Vomiting: No Temp > 96.8F: Yes Pain Manageable: Yes Adequeate Hydration: Yes Anesthesia Complications: No Block Receding Appropriately: Yes
--- NOTE | 2021-08-26 15:56 | Operative Report ---
Operative Report Operative Report: Date of surgery: August 26, 2021 Preoperative diagnosis: at 39+0 weeks; previous delivery; u ndesired fertility Postoperative diagnosis: Same as above Procedure: Repeat low transverse delivery and bilateral tubal ligation via [place] method Surgeon: Silvia Hinojosa M.D. Anesthesia: Regional Estimated blood loss: Qbl: 672ml IV fluids: 1 L Urine output: 50 mL Findings: Liveborn male with Apgars of 8 and 9 weight 6 pounds 10 ounces Indications: 30-year-old at 39+0 weeks who presents for repeat delivery and bilateral tubal ligation. Procedure: The patient was taken to the operating room and given regional anesthesia without complication. She was prepped and draped in a normal sterile fashion. A Pfannenstiel skin incision was made down to layer the fascia which was nicked in the midline extended laterally with the Bovie cautery. The superior aspect of the rectus fascia was grasped with Lazara clamps x2 and the rectus muscles off sharply. This was done in inferior fashion as well. The rectus muscle midline and peritoneum entered bluntly. An Jose Cruz retractor was then inserted. A bladder blade was placed. The vesicouterine peritoneum was then entered sharply with Metzenbaum scissors. A bladder flap was created digitally. A low transverse uterine incision was then made and extended digitally. There was clear fluid upon entry into the uterine cavity. The head was delivered through the incision with fundal pressure. The cord was clamped and cut x2 and infant was passed off to pediatrics. The placenta was then manually extracted. The uterus was then exteriorized and cleared of clots and debris. The uterine incision was then closed in a running locked fashion with 0 Vicryl additional imbricating stitch was applied for 2 layer closure. Attention was then turned to the ampullary portion of tube where the mesosalpinx was transected with the Bovie cautery. A Bruni was placed on the fallopian tube. The distal and proximal area of the fallopian tube were excised and ligated with chromic suture. A 1 cm portion of tube was then excised. This was performed the contralateral side as well. The posterior cul-de-sac was then copiously irrigated. The uterus was replaced back into the abdomen and pelvis were the gutters were then irrigated. The Jose Cruz retractor was then removed. The peritoneum was then reapproximated with 3-0 Vicryl incorporating the rectus muscle. The fascia was then closed with 0 Vicryl in a running fashion. The skin was then reapproximated with 3-0 Monocryl on a Oneil needle subcuticular fashion. Steri-Strips to place across the incision and a Crede procedures performed at the end of the surgery. A pressure dressing was applied to the incision. The surgery productive of a liveborn male with Apgars of 8 and 9 weight 6 pounds 10 ounces. The patient was taken to the recovery room in stable condition. All sponge laps and needle counts correct x2.
[2021-08-26] MEDS: KETOROLAC 30 MG/1 ML INJ IV PRN (17:59)
[2021-08-26] MEDS: MORPHINE 4 MG/1 ML INJ IV PRN (19:43)
[2021-08-26] MEDS ORDERED: MAGNESIUM HYDROXIDE (MOM) ORAL LIQD UDC PO PRN (22:00)
[2021-08-27] MEDS: KETOROLAC 30 MG/1 ML INJ IV PRN ×3 (00:02→16:15)
[2021-08-27 00:03] LABS: Hematocrit 32.2 % (30.3-42.9); Hemoglobin 10.4 gm/dl (10.1-14.3)
[2021-08-27] MEDS: MORPHINE 4 MG/1 ML INJ IV PRN (01:32)
--- NOTE | 2021-08-27 09:27 | Progress Note ---
Assessment and Plan - Patient Problems (1) Status post repeat low transverse section Current Visit: Yes Status: Acute Plan to address problem: Continue routin PP orders Keep dressing clean and dry, remove on POD#2 Anticipate d/c home in 24-48 hrs if stable (2) Status post tubal ligation at time of delivery, current hospitalization Current Visit: Yes Status: Acute (3) Anemia Current Visit: Yes Status: Acute Qualifiers: Anemia type: other cause Other causes of anemia: acute posthemorrhagic Qualified Code(s): D62 - Acute posthemorrhagic anemia Plan to address problem: Asymptomatic Increase iron rich foods into diet (4) Hyperthyroidism Current Visit: Yes Status: Acute Plan to address problem: Resume home meds Subjective - Subjective Date of service: 08/27/21 Principal diagnosis: Repeat C/S; POD#1 Interval history: 30y/o @ 39+0 weeks presents for a scheduled delivery and bilateral tubal ligation. The patient has had a previous . Patient ini [facility] care in the first trimester. Her course is complicated by obesity, echogenic bowel on ultrasound, and transient hyperthyroidism. Delivered viable male via C/S. Patient reports: appetite normal, voiding normally, pain well controlled, flatus, ambulating normally, no bowel movement : doing well, bottle feeding Objective - Vital Signs Latest vital signs: Vital Signs Temp Pulse Resp BP BP Pulse Ox Pulse Ox 08/27/21 07:53 98.4 F 75 20 130/73 98 08/27/21 05:52 18 08/27/21 05:22 18 08/27/21 04:41 98.0 F 86 18 140/83 98 08/27/21 02:02 18 08/27/21 01:32 18 08/27/21 00:48 97.8 F 48 L 08/27/21 00:32 18 08/27/21 00:21 98.7 F 87 20 141/84 96 08/27/21 00:02 18 08/26/21 21:00 97.8 F 123/38 08/26/21 20:30 100 08/26/21 20:13 18 08/26/21 19:43 18 08/26/21 14:40 97.6 F 69 16 124/79 99 99 08/26/21 14:15 62 16 132/81 99 08/26/21 14:00 97.8 F 60 15 132/80 98 08/26/21 13:45 60 15 125/72 98 08/26/21 13:30 62 16 128/79 98 08/26/21 13:25 97.9 F 66 15 121/80 98 08/26/21 13:20 64 17 125/77 98 08/26/21 13:18 97.9 F 61 16 122/77 99 08/26/21 11:40 128 H 99 08/26/21 11:35 111 H 99 08/26/21 11:30 131 H 100 08/26/21 11:25 83 100 08/26/21 11:20 83 98 08/26/21 11:15 84 97 08/26/21 11:14 98 08/26/21 11:10 82 100 08/26/21 11:05 82 100 08/26/21 11:00 79 100 08/26/21 10:55 91 H 100 08/26/21 10:50 91 H 99 08/26/21 10:45 89 99 08/26/21 10:40 79 99 08/26/21 10:35 92 H 99 08/26/21 10:30 90 99 08/26/21 10:25 86 99 08/26/21 10:20 97 H 99 08/26/21 10:11 94 H 99 08/26/21 10:06 89 99 08/26/21 10:02 97.5 F L 88 20 125/85 99 08/26/21 10:01 86 98 08/26/21 09:58 99 H 125/85 08/26/21 09:56 91 H 98 Intake and Output 08/26/21 08/27/21 08/27/21 23:59 07:59 15:59 Intake Total 520 1200 Output Total 650 600 Balance -130 600 Intake: Oral 520 660 Intake, Free Water 540 Output: Urine 650 600 Indwelling Catheter 650 300 Void 300 Other: Total, Intake Amount 520 420 Total, Output Amount 650 300 - Exam Breasts: Present: normal Cardiovascular: Present: Regular rate Lungs: Present: Normal air movement Abdomen: Present: soft, tenderness Uterus: Present: firm, fundal height below umbilicus (U-1) Extremities: Present: edema Deep Tendon Reflex Grade: Normal +2 Incision: Present: dressed (no shadow drainage or bleeding noted) - Labs Labs: Abnormal lab results 08/26/21 Range/Units 10:40 MCH 27 L (28-32) pg
[2021-08-27] MEDS: oxyCODONE /ACETAMINOPHEN 5-325MG TAB PO PRN ×2 (11:07→18:21)
[2021-08-27] MEDS: IBUPROFEN 600 MG TAB PO PRN (23:05)
[2021-08-28] MEDS: oxyCODONE /ACETAMINOPHEN 5-325MG TAB PO PRN ×3 (00:38→21:49)
[2021-08-28] MEDS: IBUPROFEN 600 MG TAB PO PRN (05:18)
--- NOTE | 2021-08-28 07:34 | Progress Note ---
Assessment and Plan A: POD#2 s/p repeat section and tubal ligation Obesity Suboptimal pain control P: Optimize pain regimen Routine postop care Anticipate discharge later today or tomorrow Subjective - Subjective Date of service: 08/28/21 Principal diagnosis: Repeat C/S; POD#2 Interval history: Pt reports suboptimal pain control. Voiding with a burning sensation across her incision. + flatus. No bowel movement yet. Patient reports: appetite normal, voiding normally, flatus, pain poorly controlled, ambulating normally, no bowel movement : doing well Objective - Vital Signs Latest vital signs: Vital Signs Temp Pulse Resp BP Pulse Ox Pulse Ox 08/28/21 06:18 18 08/28/21 05:18 18 08/28/21 01:38 18 08/28/21 00:38 18 08/28/21 00:18 98.2 F 92 H 21 147/92 96 08/28/21 00:05 18 08/27/21 23:05 18 08/27/21 21:30 99 08/27/21 19:21 18 08/27/21 18:21 16 08/27/21 16:45 16 08/27/21 16:15 16 08/27/21 16:03 98.5 F 80 20 120/75 100 08/27/21 11:56 98.5 F 92 H 20 125/78 100 08/27/21 11:07 16 08/27/21 10:25 100 08/27/21 07:53 98.4 F 75 20 130/73 98 Intake and Output 08/27/21 08/28/21 08/28/21 22:59 06:59 14:59 Intake Total 240 720 Balance 240 720 Intake: Oral 240 Intake, Free Water 720 Other: Total, Intake Amount 240 # Voids Void 1 1 - Exam Breasts: Present: deferred Abdomen: Present: soft (obese) Uterus: Present: fundal height at umbilicus Extremities: Present: edema (trace)
[2021-08-28] MEDS ORDERED: IBUPROFEN 600 MG TAB PO SCH (08:00)
[2021-08-28] MEDS: LACTULOSE 20 GM/30 ML ORAL LIQD PO SCH ×2 (12:11→22:00)
[2021-08-28] MEDS: IBUPROFEN 800 MG TAB PO SCH ×2 (12:11→17:26)
[2021-08-28 16:30] LABS: Bilirubin,Urine NEG (Negative); Blood,Urine LG (Negative); Color,Urine Yellow (Yellow); Mucus,Urine 1+ /HPF; Protein,Urine <15 mg/dL mg/dL (Negative); Urobilinogen,Urine < 2.0 mg/dL (<2.0)
[2021-08-28] MEDS ORDERED: ceFAZolin/NS 1 GM/50 ML 1 GM/50 ML BAG IV ONE (17:18)
[2021-08-28] MEDS ORDERED: NITROFURANTOIN MONOHYD/M-CRYST 100 MG CAP PO ONE (17:31)
[2021-08-29] MEDS: IBUPROFEN 800 MG TAB PO SCH (01:26)
[2021-08-29] MEDS: oxyCODONE /ACETAMINOPHEN 5-325MG TAB PO PRN ×2 (06:04→13:40)
--- NOTE | 2021-08-29 13:16 | Progress Note ---
Assessment and Plan A: POD#3 s/p repeat section and tubal ligation Obesity UTI P: Routine postop care Anticipate discharge later today Subjective - Subjective Date of service: 08/29/21 Principal diagnosis: Repeat C/S; POD#3 Interval history: Pt without complaints. + flatus.+ BM. Pt excited to go home. Patient reports: appetite normal, voiding normally, pain well controlled, flatus, bowel movement, ambulating normally : doing well Objective - Vital Signs Latest vital signs: Vital Signs Temp Pulse Resp BP BP Pulse Ox Pulse Ox 08/29/21 08:41 98 F 84 20 134/90 99 08/29/21 07:24 100 08/29/21 06:05 98.5 F 08/29/21 00:39 97.4 F L 96 H 20 127/85 98 08/28/21 19:45 100 08/28/21 16:08 97.9 F 93 H 18 131/78 100 Intake and Output 08/28/21 08/29/21 08/29/21 22:59 06:59 14:59 Intake Total 1200 120 480 Balance 1200 120 480 Intake: Oral 360 120 480 Intake, Free Water 840 Other: Total, Intake Amount 360 120 120 Voiding Method Toilet # Voids Void 1 1 1 # Bowel Movements 1 - Exam Breasts: Present: deferred Abdomen: Present: soft (obese ) Uterus: Present: fundal height at umbilicus Extremities: Absent: tenderness, edema Incision: Present: intact - Labs Labs: Abnormal lab results 08/28/21 Range/Units 15:50 Urine WBC (Auto) 49.0 H (0.0-6.0) /HPF U Epithel Cells (Auto) 19.0 H (0-13.0) /HPF
--- NOTE | 2021-08-29 13:19 | Discharge Summary ---
Providers - Providers Date of Admission: 08/26/21 11:46 Date of discharge: 08/29/21 Attending physician: NAREN WAKEFIELD Primary care physician: [employer] FINISHER Hospitalization Reason for admission: section Delivery: Procedure: section, bilateral tubal ligation, repeat low transverse Procedure details: Please see operative report Incision: intact (with steristrips) Other procedures: none complications: none Discharge diagnosis: IUP at term delivered baby: male Hospital course: This patient was admitted for repeat section and tubal ligation which he tolerated well. Her postoperative course was complicated by UTI and she met discharge criteria on postoperative #3. Condition at discharge: Stable Disposition: 01 HOME / SELF CARE / HOMELESS - Discharge Diagnoses (1) Term of male Status: Acute (2) Previous delivery affecting Status: Acute (3) Status post repeat low transverse section Status: Acute (4) Unwanted fertility Status: Acute Plan - Discharge Medications Prescriptions: Nitrofurantoin [place]/M-Cryst [Macrobid CAP] 100 mg PO Q12HR #14 capsule Ibuprofen [Motrin] 800 mg PO Q8HR PRN #30 tablet PRN Reason: Pain, Moderate (4-6) oxyCODONE /ACETAMINOPHEN [Percocet 5/325] 1 tab PO Q6HR PRN #30 tablet PRN Reason: Pain - Provider Discharge Summary Activity: routine, no sex for 6 weeks, no heavy lifting 4 weeks, no strenuous exercise Diet: routine Instructions: routine Additional instructions: [] Smoking cessation referral if applicable(refer to patient education folder for contact #) [] Refer to [facility]'s [facility] Booklet Call your doctor immediately for: * Fever > 100.5 * Heavy vaginal bleeding ( >1 pad per hour) * Severe persistent headache * Shortness of breath * Reddened, hot, painful area to leg or breast * Drainage or odor from incision. * Keep incision clean and dry at all times and follow doctor's instructions regarding bathing/showering - Follow up plan Follow up: PRIMARY CARE, [Primary Care Provider] - 7 Days NORBERT KAPOOR CNM [Advanced Practice Nurse] - 14 Days (Please call to schedule incision check Please schedule your son's circumcision before he is one month old. )
[2021-08-29 14:29] VITALS: BP 133/96
== END 2021-08-29 18:30 | disposition home or self-care (01) | DRG 765 ==
LOC: APU 09:37 → UNDOADMIN 09:37 → APU 11:46 → OB 14:33
PROVIDERS: ADMIT Obstetrics & Gynecology; ATTEND Obstetrics & Gynecology
PROC: 10D00Z1 Extraction of Products of Conception, Low, Open Approach (ICD-10-PCS; principal; 2021-08-26)
PROC: 0UB70ZZ Excision of Bilateral Fallopian Tubes, Open Approach (ICD-10-PCS; 2021-08-26)
DX: O34.211 Maternal care for low transverse scar from previous cesarean delivery (principal); D62 Acute posthemorrhagic anemia; O86.20 Urinary tract infection following delivery, unspecified; N39.0 Urinary tract infection, site not specified; Z20.822 Contact with and (suspected) exposure to COVID-19; O99.214 Obesity complicating childbirth; O99.284 Endocrine, nutritional and metabolic diseases complicating childbirth; O90.81 Anemia of the puerperium; E05.90 Thyrotoxicosis, unspecified without thyrotoxic crisis or storm; K21.9 Gastro-esophageal reflux disease without esophagitis; O99.62 Diseases of the digestive system complicating childbirth; Z37.0 Single live birth; Z3A.39 39 weeks gestation of pregnancy; Z30.2 Encounter for sterilization
CPT/HCPCS: 36415; 81001; 85014; 85018; 85027; 86592; 86850; 86900; 86901; 87086; 88302; 99211; G0378; J3490; J7121; G0463; J0690; J1100; J1200; J1885; J2270; J2405; J2765; J7120; U0003